=== PATIENT | male | born 1955 | race Caucasian/White ===

== ENCOUNTER 2020-04-21 13:12 | Emergency (ER) | payer OTHER ==
[~2020-04-21] VITALS: Ht 177.8 cm; Wt 90.7 kg
[2020-04-21] MEDS ORDERED: LISINOPRIL2.5 MG PO (13:26)
[2020-04-21 13:39] LABS: URINE BILIRUBIN NEGATIVE (Negative); URINE BLOOD 3+ (Negative); URINE CLARITY CLEAR; URINE COLOR YELLOW; URINE GLUCOSE-RANDOM NEGATIVE (Negative); URINE KETONES 1+ (Negative); URINE LEUKOCYTES NEGATIVE (Negative); URINE NITRITE NEGATIVE (Negative); URINE PROTEIN NEGATIVE (Negative); URINE SPECIFIC GRAVITY >= 1.030 (1.005-1.030); URINE UROBILINOGEN 0.2 E.U./dl (0.2-1.0)
[2020-04-21 13:51] LABS: BACTERIA None Seen /HPF (None Seen); CASTS None Seen /LPF (None Seen); CRYSTALS None Seen /LPF (None Seen); SQUAMOUS 4-10 Moderate /LPF (0-3); URINE RBC >20 Many /HPF (0-2); URINE WBC None Seen /HPF (0-5)
[2020-04-21 13:59] LABS: ABSOLUTE BASOPHILS 0.1 thou/uL (0.0-0.2); ABSOLUTE LYMPHOCYTES 1.4 thou/uL (0.8-5.3); ABSOLUTE MONOCYTES 0.9 thou/uL (0.0-1.2); ABSOLUTE NEUTROPHILS 12.2 thou/uL (1.6-8.1); BASOPHILS 0.5 %; EOSINOPHILS 0.2 %; HEMATOCRIT 50.2 % (42.0-52.0); HEMOGLOBIN 17.7 gm/dL (14.0-18.0); LYMPHOCYTES 9.9 %; MCH 32.1 pg (26.0-34.0); MCHC 35.2 g/dL (28.0-37.0); MONOCYTES 6.1 %; MPV 9.3 fl. (7.2-11.1); NUCLEATED RBCS 0 /100WBC; PLATELET COUNT* 209 thou/uL (150-400); POLYS 83.3 %; RBC 5.52 mil/uL (4.50-6.00); RDW-CV 12.8 % (10.5-14.5); WBC 14.6 thou/uL (4.0-11.0)
[2020-04-21 14:15] LABS: CALCIUM 8.7 mg/dL (8.5-10.1); CREATININE 1.1 mg/dL (0.6-1.3); POTASSIUM 3.8 mmol/L (3.5-5.1)
[2020-04-21 14:20] LABS: ALBUMIN 3.9 g/dL (3.4-5.0); TOTAL BILIRUBIN 1.5 mg/dL (<0.1-1.0); TOTAL PROTEIN 7.1 g/dL (6.4-8.2)
[2020-04-21] MEDS ORDERED: FLOMAX0.4 MG PO (14:45)
[2020-04-21] MEDS ORDERED: KEFLEX500 M2 PO (14:45)
[2020-04-21] MEDS ORDERED: IBU600 MG PO (14:45)
[2020-04-21 15:10] VITALS: BP 158/68
== END 2020-04-21 15:11 | disposition home or self-care (01) ==
LOC: M.ERS 13:12
PROVIDERS: Physician Assistant
DX: N20.0 Calculus of kidney (principal)